=== PATIENT | female | born 1965 | race Hispanic/Latino ===

== ENCOUNTER → 2018-02-02 | Outpatient (CLI) | payer OTHER ==
[~2018-02-02] MED LIST: IOPAMIDOL 370 MG/ML 200 ML INFUS..BTL INJ ONE; SODIUM CHLORIDE 0.9% 50ML 50 ML ONE
--- NOTE | 2018-02-02 11:12 | Diagnostic Imaging Report ---
EXAM: CT Abdomen and Pelvis WITH contrast INDICATION: Abdominal Pain COMPARISON: None. TECHNIQUE: Abdomen and pelvis were scanned utilizing a multidetector helical scanner from the lung base to the pubic symphysis after administration of IV contrast. Coronal and sagittal reformations were obtained. Routine protocol was performed. Scan was performed when during portal venous phase. IV CONTRAST: 100 cc of Isovue 370 ORAL CONTRAST: 500 cc of water COMPLICATIONS: None RADIATION DOSE: Total DLP: 538.1 mGy*cm CTDIvol has been reviewed. It is below the limits set by the Radiation Protocol Committee (RPC). FINDINGS: LINES and TUBES: None. LOWER THORAX: A 4 mm solid pulmonary nodule in the left lower lobe on series 98, image 3. HEPATOBILIARY: Diffuse mild fatty liver. No evidence of focal lesion. No biliary ductal dilation. The gallbladder is unremarkable. SPLEEN: No splenomegaly. PANCREAS: No focal masses or ductal dilatation. ADRENALS: No adrenal nodules KIDNEYS/URETERS: Kidneys enhance symmetrically. No evidence of hydronephrosis, solid mass, or stone. GI TRACT: No evidence of wall thickening or distension. Status post appendectomy. PELVIC ORGANS/BLADDER: Unremarkable. LYMPH NODES: No lymphadenopathy. VESSELS: Minimal atherosclerotic changes. PERITONEUM / RETROPERITONEUM: No free air or fluid. BONES AND SOFT TISSUES: Unremarkable. CONCLUSION: No etiology identified to account for the patient's left abdominal pain. Mild hepatic steatosis. A 4 mm solid pulmonary nodule in the left lower lobe. Per modified Fleischner criteria, in a low risk patient, no followup is suggested. If there is a history of smoking or other risk factor for malignancy, an optional chest CT in 12 months may be considered. Signed by: Dr. Pat Galaviz MD on 02/02/2018 11:09 AM
== END ==
LOC: CT 09:17
PROVIDERS: ATTEND Internal Medicine
DX: R10.9 Unspecified abdominal pain (principal)
CPT/HCPCS: 74177; Q9967

== ENCOUNTER → 2018-05-15 | Outpatient (CLI) | payer OTHER ==
--- NOTE | 2018-05-15 13:38 | Diagnostic Imaging Report ---
EXAM: CT Chest without contrast INDICATION: Solitary pulmonary nodule. COMPARISON: None TECHNIQUE: Chest was scanned utilizing a multidetector helical scanner from the lung apex through the level of the adrenal glands without administration of IV contrast. Coronal and sagittal reformations were obtained. Routine protocol was performed . RADIATION DOSE: Total DLP: 492.8 mGy*cm Dose modulation, iterative reconstruction, and/or weight based adjustment of the mA/kV was utilized to reduce the radiation dose to as low as reasonably achievable. COMPLICATIONS: None FINDINGS: LINES/ TUBES: None. LUNGS AND AIRWAYS: There is a right-sided tracheal diverticulum on series 3, image 35. The central airways are patent. There is mild biapical pleural-parenchymal opacity. Tiny 2 mm right upper lobe subpleural nodule on image 17 and 2 mm subpleural right lower lobe nodule on image 78. Minimal patchy atelectasis in the lingula. PLEURA: The pleural spaces are clear. HEART AND MEDIASTINUM: The thyroid gland is normal. No mediastinal, hilar or axillary lymphadenopathy. The heart is normal in size.. There is no pericardial effusion. UPPER ABDOMEN: Limited non-contrast views of the upper abdomen. There is fatty infiltration of liver. Geographic areas of likely focal fatty sparing adjacent to the falciform ligament. BONES: The visualized bony thorax is within normal limits. SOFT TISSUES: Unremarkable. IMPRESSION: No evidence for nodule suspicious for malignancy. Tiny 2 mm right sided pulmonary nodules are likely benign and require no further follow-up in a low risk patient. If there is a high risk for malignancy, an optional follow-up chest CT may be considered in 12 months. Hepatic steatosis. Incidental tracheal diverticulum. Signed by: Dr. Pat Galaviz MD on 05/15/2018 1:34 PM
== END ==
LOC: CT 10:47
PROVIDERS: ATTEND Internal Medicine
DX: R91.1 Solitary pulmonary nodule (principal)
CPT/HCPCS: 71250

== ENCOUNTER → 2018-06-01 | Outpatient (CLI) | payer OTHER ==
--- NOTE | 2018-06-01 14:26 | Diagnostic Imaging Report ---
Exam: Right knee 3 views History: Pain Comparison: None. Findings: No fracture or malalignment. Joint spaces preserved. No abnormal soft tissue calcification or soft tissue defect. Impression: No acute osseous abnormality Signed by: Dr. Paul Cartwright M.D. on 06/01/2018 2:22 PM
--- NOTE | 2018-06-01 14:27 | Diagnostic Imaging Report ---
Exam: Right ankle 3 views History: Pain Comparison: None. Findings: No fracture or malalignment. Joint spaces preserved. Mild soft tissue swelling. Impression: No acute osseous abnormality Signed by: Dr. Paul Cartwright M.D. on 06/01/2018 2:23 PM
== END ==
LOC: US 12:54
PROVIDERS: ATTEND Internal Medicine
DX: R92.8 Other abnormal and inconclusive findings on diagnostic imaging of breast (principal); M25.571 Pain in right ankle and joints of right foot; M25.561 Pain in right knee
CPT/HCPCS: 77066

== ENCOUNTER 2019-08-01 15:02 | Emergency (ER) | payer OTHER ==
[~2019-08-01] VITALS: Ht 160 cm; Wt 74.8 kg
[2019-08-01] MEDS ORDERED: ACETAMINOPHEN 325 MG TAB ONE (15:25)
[2019-08-01] MEDS ORDERED: ACETAMINOPHEN 325 MG TAB PO ONE (15:30)
--- NOTE | 2019-08-01 16:19 | Diagnostic Imaging Report ---
EXAMINATION: CHEST SINGLE (PORTABLE) INDICATION: Shortness of breath COMPARISON: Chest CT 05/15/2018 FINDINGS: LINES/TUBES:None LUNGS:The lungs are moderately inflated. Mildly increased lower lung predominant interstitial opacities. PLEURA:No pleural effusion or pneumothorax. MEDIASTINUM:The cardiomediastinal silhouette appears normal in size and shape. BONES/SOFT TISSUES:No acute osseous injury. ABDOMEN:No free air under the diaphragm. IMPRESSION: Mildly increased lower lung predominant interstitial opacities may represent viral pneumonitis in the proper clinical setting. Signed by: Ashley Mccoy MD on 08/01/2019 4:15 PM
[2019-08-01] MEDS ORDERED: AZITHROMYCIN250 MG PO (16:39)
--- NOTE | 2019-08-01 17:16 | Emergency Department Note ---
History of Present Illnes History of Present Illness Chief Complaint: COVID PUI History of Present Illness This is a 54 year old female arrived to the ED with complaints of cough fever, she is awaiting her Covid test. Chief Complaint Comment PATIENT IN FROM HOME WITH COMPLAINTS OF COUGH AND FEVER X 2 WEEKS; STATES WENT TO THE CLINIC TO GET COVID TESTING BUT HAS NOT GOTTEN THE RESULTS YET. PATIENT ALERT AND ORIENTED, RESP EVEN AND NONLABORED, APPEARS ANXIOUS. PATIENT STATES THAT HER OTHER FAMILY MEMBERS ARE ALSO SICK Historian: Patient, Significant Other Arrival Mode: Car Onset (how long ago): week(s) Severity: mild Onset quality: gradual Duration (how long): week(s) Timing of current episode: intermittent Progression: waxing and waning Context: Reports recent illness Relieving factors: none Exacerbating factors: none Past Medical/Family History Physician Review I have reviewed the patient's past medical and family history. Any updates have been documented here. Past Medical History Recent Fever: Yes Clinical Suspicion of Infectio: Yes New/Unexplained Change in Ment: No Past Medical History: None Past Surgical History: Appendectomy Family History Family history of heart diseas: No Other Last Tetanus: UNKNOWN Review of Systems Review of Systems Constitutional: Reports as per HPI, Reports chills, Reports fever EENTM: Reports no symptoms Cardiovascular: Reports no symptoms Respiratory: Reports as per HPI, Reports cough, Reports pain with cough, Reports dyspnea Gastrointestinal: Reports no symptoms Genitourinary: Reports no symptoms Musculoskeletal: Reports no symptoms Integumentary: Reports no symptoms Neurological: Reports no symptoms Psychological: Reports no symptoms Endocrine: Reports no symptoms Hematological/Lymphatic: Reports no symptoms Physical Exam Related Data Allergies: Coded Allergies: No Known Allergies (Unverified , 08/01/19) Triage Vital Signs Vital Signs Date Time Temp Pulse Resp B/P (MAP) Pulse Ox O2 Delivery O2 Flow Rate FiO2 08/01/19 15:11 102.8 98 24 100/68 99 Vital signs reviewed: Yes Physical Exam CONSTITUTIONAL Constitutional: Present well-developed, Present well-nourished HENT HENT: Present normocephalic, Present atraumatic, Present oropharynx clear/moist, Present nose normal HENT L/R: Present left ext ear normal, Present right ext ear normal EYES Eyes: Reports PERRL, Reports conjunctivae normal NECK Neck: Present ROM normal PULMONARY Pulmonary: Present effort normal, Present breath sounds normal CARDIOVASCULAR Cardiovascular: Present regular rhythm, Present heart sounds normal, Present capillary refill normal, Present normal rate GASTROINTESTINAL Abdominal: Present soft, Present nontender, Present bowel sounds normal GENITOURINARY Genitourinary: Present exam deferred SKIN Skin: Present warm, Present dry MUSCULOSKELETAL Musculoskeletal: Present ROM normal NEUROLOGICAL Neurological: Present alert, Present oriented x 3, Present no gross motor or sensory deficits PSYCHOLOGICAL Psychological: Present mood/affect normal, Present judgement normal Results Imaging Imaging results reviewed: Yes Assessment & Plan Medical Decision Making MDM Patient evaluated in the current Covid 19 pandemic and disaster medicine care was provided- Patient's oxygen saturation remained 99% on room air, patient ambulatory without any evidence of Tachypnea Discussed patient's chest x-ray findingspatient informed of results and told to tell contacts. Patient informed she is Covid positive until proven otherwise. Assessment & Plan Final Impression: (1) COVID-19 Depart Disposition: HOME, SELF-CARE Last Vital Signs Date Time Temp Pulse Resp B/P (MAP) Pulse Ox O2 Delivery O2 Flow Rate FiO2 08/01/19 15:11 102.8 98 24 100/68 99 Home Meds Active Scripts Azithromycin (Z-ODALYS) 250 Mg Tablet, 1 PKG PO DIRECTED, #1 PKG 0 Refills Prov:PATRICIO PARKER DO 08/01/19 Medications in the ED Acetaminophen 975 mg STK-MED ONCE .ROUTE ; Start 08/01/19 at 15:25; Stop 08/01/19 at 15:19; Status DC Acetaminophen 975 mg ONCE ONCE PO Last administered on 08/01/19at 15:21; Admin Dose 975 MG; Start 08/01/19 at 15:30; Stop 08/01/19 at 16:14; Status DC PATRICIO PARKER DO Aug 01, 2019 17:16
== END 2019-08-01 17:21 | disposition home or self-care (01) ==
LOC: ER 15:02
DX: R50.9 Fever, unspecified (principal); R05 Cough; U07.1 COVID-19
CPT/HCPCS: 71045; 99283

== ENCOUNTER → 2020-04-07 | Outpatient (CLI) | payer OTHER ==
[~2020-04-07] MED LIST changes: +AZITHROMYCIN250 MG PO; -IOPAMIDOL 370 MG/ML 200 ML INFUS..BTL INJ ONE; -SODIUM CHLORIDE 0.9% 50ML 50 ML ONE
== END ==
LOC: MAMMO 09:10
PROVIDERS: ATTEND Internal Medicine
DX: Z12.31 Encounter for screening mammogram for malignant neoplasm of breast (principal)
CPT/HCPCS: 77067

== ENCOUNTER → 2020-04-30 | Outpatient (CLI) | payer OTHER | LOC: RAD 11:47 | PROVIDERS: ATTEND Internal Medicine | DX: S73.102A Unspecified sprain of left hip, initial encounter (principal); S33.5XXA Sprain of ligaments of lumbar spine, initial encounter; S43.492A Other sprain of left shoulder joint, initial encounter; J45.909 Unspecified asthma, uncomplicated | CPT/HCPCS: 71046; 72050; 72110 ==

== ENCOUNTER → 2021-07-14 | Outpatient (CLI) | payer OTHER | LOC: MAMMO 08:37 | PROVIDERS: ATTEND Internal Medicine | DX: Z12.31 Encounter for screening mammogram for malignant neoplasm of breast (principal) | CPT/HCPCS: 77067 ==